=== PATIENT | male | born 1980 | race Caucasian/White ===

== ENCOUNTER 2019-08-26 08:37 | Inpatient (IN) | payer BC ==
[2019-08-26 10:08] VITALS: BMI 21.8
[2019-08-26] MEDS ORDERED: METHOCARBAMOL 500 MG TABLET PO PRN (10:44)
[2019-08-26] MEDS ORDERED: chlordiazePOXIDE HCL 25 MG CAPSULE PO PRN (10:44)
[2019-08-26] MEDS ORDERED: ACETAMINOPHEN 325 MG TABLET (FP) PO PRN ×2 (10:44)
[2019-08-26] MEDS ORDERED: ONDANSETRON *ODT* 4 MG TABLET SL PRN (10:44)
[2019-08-26] MEDS ORDERED: MENTHOL/PHENOL 1 EACH UD MM PRN (10:44)
[2019-08-26] MEDS ORDERED: MAGNESIUM CITRATE 300 ML BOTTLE PO PRN (10:44)
[2019-08-26] MEDS ORDERED: MAG HYDROX/AL HYDROX/SIMETH 30 ML UNIT-DOSE CUP PO PRN (10:44)
[2019-08-26] MEDS ORDERED: NICOTINE POLACRILEX 2 MG GUM BUC PRN (10:44)
[2019-08-26] MEDS ORDERED: BISMUTH SUBSALICYLATE 262 MG/15 ML BTL PO PRN (10:44)
[2019-08-26] MEDS ORDERED: MAGNESIUM HYDROX 2400MG/30ML ORAL SUSPENSION 30 ML CUP PO PRN (10:44)
[2019-08-26] MEDS: NICOTINE 21 MG/24 HOURS TOPICAL PATCH TD SCH (11:56)
[2019-08-26] MEDS: hydrOXYzine PAMOATE 25 MG CAPSULE (FP) PO SCH ×3 (13:06→22:01)
[2019-08-26] MEDS: GABAPENTIN 300 MG CAPSULE PO SCH ×2 (13:06→22:00)
[2019-08-26 16:28] LABS: BILIRUBIN,TOTAL 0.4 mg/dL (0.2-1); BLOOD UREA NITROGEN 8.3 mg/dL (7-18); CALCIUM 8.4 mg/dL (8.5-10.1); CREATININE 0.9 mg/dL (0.55-1.3); POTASSIUM 3.6 mmol/L (3.5-5.1)
[2019-08-26 16:32] LABS: HEMATOCRIT 45.5 % (35.4-49); HEMOGLOBIN 15.3 GM/dL (11.7-16.9); MCH 33.3 pg (25.7-33.7); MCHC 33.5 g/dl (32.0-35.9); MEAN CELL VOLUME 99.2 fl (80-96); MEAN PLT VOLUME 8.8 fl (7.5-11.1); PLATELET COUNT 108 K/MM3 (134-434); RBC 4.59 M/mm3 (4.00-5.60); RDW 13.2 % (11.9-15.9); WHITE BLOOD COUNT 4.7 K/mm3 (4.0-10.0)
[2019-08-26 17:23] LABS: HIV INTERPRETATION NEGATIVE (NEGATIVE)
[2019-08-26] MEDS: chlordiazePOXIDE HCL 25 MG CAPSULE PO SCH ×2 (17:42→22:00)
[2019-08-26] MEDS: THIAMINE HCL 100 MG TABLET (FP) PO SCH (22:00)
[2019-08-26] MEDS: MELATONIN 5 MG TABLETS PO SCH (22:01)
[2019-08-27] MEDS: chlordiazePOXIDE HCL 25 MG CAPSULE PO SCH ×4 (05:24→21:59)
[2019-08-27] MEDS: hydrOXYzine PAMOATE 25 MG CAPSULE (FP) PO SCH ×2 (05:24→10:28)
[2019-08-27] MEDS: GABAPENTIN 300 MG CAPSULE PO SCH ×3 (05:25→21:59)
[2019-08-27] MEDS: NICOTINE 21 MG/24 HOURS TOPICAL PATCH TD SCH (10:28)
[2019-08-27] MEDS: PRENATAL VITAMINS W/ FOLIC ACID TABLET (FP) PO SCH (10:28)
[2019-08-27] MEDS: hydrOXYzine PAMOATE 25 MG CAPSULE (FP) PO PRN (17:14)
[2019-08-27] MEDS: THIAMINE HCL 100 MG TABLET (FP) PO SCH (21:59)
[2019-08-27] MEDS: MELATONIN 5 MG TABLETS PO SCH (22:00)
[2019-08-27] MEDS: ALBUTEROL SO4 HFA INHALER IH PRN (22:10)
[2019-08-28] MEDS: GABAPENTIN 300 MG CAPSULE PO SCH ×3 (05:18→22:16)
[2019-08-28] MEDS: chlordiazePOXIDE HCL 25 MG CAPSULE PO SCH ×4 (05:19→22:16)
[2019-08-28] MEDS: NICOTINE 21 MG/24 HOURS TOPICAL PATCH TD SCH (10:59)
[2019-08-28] MEDS: PRENATAL VITAMINS W/ FOLIC ACID TABLET (FP) PO SCH (10:59)
[2019-08-28] MEDS: hydrOXYzine PAMOATE 25 MG CAPSULE (FP) PO PRN (17:45)
[2019-08-28] MEDS: THIAMINE HCL 100 MG TABLET (FP) PO SCH (22:16)
[2019-08-28] MEDS: MELATONIN 5 MG TABLETS PO SCH (22:17)
[2019-08-29] MEDS ORDERED: chlordiazePOXIDE HCL 10 MG CAPSULE PO PRN
[2019-08-29] MEDS: chlordiazePOXIDE HCL 10 MG CAPSULE PO SCH ×4 (06:13→22:02)
[2019-08-29] MEDS: IBUPROFEN 400 MG TABLET (FP) PO PRN (06:14)
[2019-08-29] MEDS: GABAPENTIN 300 MG CAPSULE PO SCH ×3 (06:15→22:02)
[2019-08-29] MEDS: PRENATAL VITAMINS W/ FOLIC ACID TABLET (FP) PO SCH (10:13)
[2019-08-29] MEDS: NICOTINE 21 MG/24 HOURS TOPICAL PATCH TD SCH (10:14)
[2019-08-29] MEDS: CEPHALEXIN MONOHYDRATE 500 MG CAPSULE (UD) PO SCH ×3 (11:49→23:17)
[2019-08-29] MEDS: MELATONIN 5 MG TABLETS PO SCH (22:02)
[2019-08-29] MEDS: THIAMINE HCL 100 MG TABLET (FP) PO SCH (22:02)
[2019-08-30] MEDS: chlordiazePOXIDE HCL 10 MG CAPSULE PO SCH ×2 (05:22→17:16)
[2019-08-30] MEDS: CEPHALEXIN MONOHYDRATE 500 MG CAPSULE (UD) PO SCH ×4 (05:22→23:26)
[2019-08-30] MEDS: GABAPENTIN 300 MG CAPSULE PO SCH ×3 (05:22→22:00)
[2019-08-30] MEDS: IBUPROFEN 400 MG TABLET (FP) PO PRN (05:24)
[2019-08-30] MEDS: ALBUTEROL SO4 HFA INHALER IH PRN (05:42)
[2019-08-30] MEDS: PRENATAL VITAMINS W/ FOLIC ACID TABLET (FP) PO SCH (10:35)
[2019-08-30] MEDS: NICOTINE 21 MG/24 HOURS TOPICAL PATCH TD SCH (10:35)
[2019-08-30] MEDS: MELATONIN 5 MG TABLETS PO SCH (22:00)
[2019-08-30] MEDS: THIAMINE HCL 100 MG TABLET (FP) PO SCH (22:00)
[2019-08-31] MEDS ORDERED: chlordiazePOXIDE HCL 10 MG CAPSULE PO ONE (05:00)
[2019-08-31] MEDS: GABAPENTIN 300 MG CAPSULE PO SCH (05:06)
[2019-08-31] MEDS: CEPHALEXIN MONOHYDRATE 500 MG CAPSULE (UD) PO SCH (05:06)
[2019-08-31 06:13] VITALS: BP 120/78; PULSE 84; TEMP 97
== END 2019-08-31 09:02 | disposition home or self-care (01) | DRG 897 ==
LOC: YASAS 08:37 → Y6N 10:19
PROVIDERS: ADMIT Allergy & Immunology; ATTEND Allergy & Immunology
PROC: HZ2ZZZZ Detoxification Services for Substance Abuse Treatment (ICD-10-PCS; principal; 2019-08-26)
DX: F10.230 Alcohol dependence with withdrawal, uncomplicated (principal); L03.115 Cellulitis of right lower limb; F17.210 Nicotine dependence, cigarettes, uncomplicated; J45.20 Mild intermittent asthma, uncomplicated; G40.909 Epilepsy, unspecified, not intractable, without status epilepticus; D69.6 Thrombocytopenia, unspecified; R74.0 Nonspecific elevation of levels of transaminase and lactic acid dehydrogenase [LDH]; R76.11 Nonspecific reaction to tuberculin skin test without active tuberculosis; S09.90XA Unspecified injury of head, initial encounter; W06.XXXA Fall from bed, initial encounter; Y93.89 Activity, other specified; Y92.230 Patient room in hospital as the place of occurrence of the external cause; Y99.8 Other external cause status
CPT/HCPCS: 36415; 70450-TC; 71045-TC-FY; 80053; 82947; 85027; 86780; 87389; 93005; 93010; 99285-25; U0003